=== PATIENT | male | born 1960 | race Caucasian/White ===

== ENCOUNTER 2017-11-14 15:19 | Day surgery (SDC) | payer OTHER ==
[2017-11-14] MEDS ORDERED: PROPOFOL 40 ML (16:11)
[2017-11-14] MEDS ORDERED: PROPOFOL 20 ML ×2 (16:51)
== END 2017-11-14 17:04 | disposition home or self-care (01) ==
LOC: GIL 15:19
DX: Z12.11 Encounter for screening for malignant neoplasm of colon (principal); D12.5 Benign neoplasm of sigmoid colon; K44.9 Diaphragmatic hernia without obstruction or gangrene; K21.9 Gastro-esophageal reflux disease without esophagitis; K29.60 Other gastritis without bleeding; K64.8 Other hemorrhoids; E78.5 Hyperlipidemia, unspecified
CPT/HCPCS: 43239; 87081; 88305